=== PATIENT | female | born 1980 | race Caucasian/White ===

== ENCOUNTER 2023-11-24 09:26 | Emergency (ER) | payer OTHER, SELFPAY ==
[2023-11-24 09:29] VITALS: BP 103/71
[2023-11-24 10:02] LABS: % Basophils 0.9 % (0-2); % Eosinophils 4.3 % (0-6); % Immature Granulocytes 0.5 % (0-0.5); % Lymphocytes 27.7 % (20.5-51.1); % Monocytes 5.5 % (1.7-9.3); % Neutrophils 61.1 % (42.2-75.2); Absolute Eosinophils 0.2 10^3/uL (0-0.7); Absolute Lymphocytes 1.2 10^3/uL (1.2-3.4); Absolute Monocytes 0.2 10^3/uL (0.1-0.6); Absolute Neutrophils 2.6 10^3/uL (1.4-6.5); Hematocrit 39.5 % (37.0-47.0); Hemoglobin 13.5 g/dL (12.0-16.0); Mean Corp Hgb Conc. 34.2 g/dL (33.0-37.0); Mean Corpuscular Hgb 31.6 pg (27.0-31.0); Mean Corpuscular Volume 92.5 fL (81.0-99.0); Nucleated Red Blood Cells % 0 %; Platelet Count 159 10^3/uL (130-400); Red Blood Cell Count 4.27 10^6/uL (4.20-5.40); Red Cell Dist. Width 13.7 % (11.5-14.5); White Blood Cell Count 4.2 10^3/uL (4.8-10.8)
[2023-11-24 10:20] LABS: ALT (SGPT) 17 U/L (0-35); AST (SGOT) 33 U/L (14-36); Acetaminophen < 10 ug/ml (10-30); Albumin 3.8 g/dl (3.5-5.0); Alkaline Phosphatase 113 U/L (38-126); Blood Urea Nitrogen 9 mg/dl (7-17); Calcium 9.2 mg/dl (8.4-10.2); Carbon Dioxide 30 mmol/L (22-30); Chloride 103 mmol/L (98-107); Glucose 101 mg/dl (70-99); Potassium 4.5 mmol/L (3.5-5.1); Salicylate < 1.0 mg/dl (2.0-20.0); Sodium 133 mmol/L (135-145); Total Bilirubin 0.3 mg/dl (0.2-1.3); Total Protein 6.3 g/dl (6.3-8.2); eGFR > 60.00
[2023-11-24 10:42] LABS: Amphetamines Negative (Negative); Barbiturates Negative (Negative); Benzodiazepines Positive (Negative); Buprenorphine Negative (Negative); Cocaine Negative (Negative)
[2023-11-24 10:43] LABS: Marijuana Positive (Negative); Methadone Positive (Negative); Methamphetamines Negative (Negative); Opiates Negative (Negative); Phencyclidine Negative (Negative); Tricyclic Antidepressants Positive (Negative)
[2023-11-24 11:15] LABS: Fentanyl, Urine Negative (Negative)
--- NOTE | 2023-11-24 11:22 | ED.GENMED ---
History of Present Illness
<Nevin Woodward PA-C - Last Filed: 11/24/23 16:01>
General
Chief Complaint: Crisis Evaluation
Source: patient
Exam Limitations: none
Time Seen by Provider: 11/24/23 10:56
Nursing documentation reviewed up to this point in time: agreed with
Travel History
Have you had any contact with someone who has COVID-19?: No
Do you have any symptoms of coronavirus? Fever > 100 degrees, chills, cough, shortness of breath, sore throat, loss of taste or smell, muscle aches, or headache?: No
History of Present Illness
History of Present Illness:
Patient is a 43 year old female with history epilepsy, CHF, cardiac arrest w/ pacemaker, bipolar depression, anxiety presenting to the emergency department for medical clearance for in-patent psychiatric placement. Patient reports that her father
about 10 days ago which has made her depression and anxiety significantly worse. She expresses suicidal ideations. She was seen by crisis team and due to past medical history sent to the emergency department for medical clearance.
Patient denies any symptoms at this time. She specifically denies any chest pain, back pain, shortness of breath, headache, pain in lower extremities, fever, chills.
Patient states was prescribed Ativan by her PCP for anxiety management about a week ago. Patient endorses 1/2 pack cigarette smoking per day. No alcohol drinking. Occasional marijuana use. Patient denies any history of IV drug use.
Phy Exam
<Nevin Woodward PA-C - Last Filed: 11/24/23 16:01>
Physical Exam
Physical Exam:
Vitals: Patient's vital signs are stable
General: Patient appears to be in no acute distress
Skin: Warm and dry, no rashes or lesions
Head: Normocephalic, atraumatic
Eyes: Sclera nonicteric. EOMs intact. No nystagmus.
Throat: Protecting airway
Neck: Normal ROM, no cervical spine tenderness, no meningismus
Cardiac: Regular rate and rhythm, no murmurs.
Pulm: Normal respiratory effort, no wheezes, rales, rhonchi heard on exam.
Abdomen: No abdominal tenderness.
Extremities: No evidence of cyanosis or edema
Neuro: AAOx3. CN II-XII intact. No focal neurologic deficits.
Psychiatric: Tearful, anxious.
Course
<Nevin Woodward PA-C - Last Filed: 11/24/23 16:01>
Orders/Labs/Results
Orders:
Orders
11/24/23 09:34
Electrocardiogram (*1) Urgent
Reason for Study: Other
Other Reason for Exam: medical clearnace for crisis
11/24/23 09:35
EKG- Treatment ONCE
11/24/23 09:42
Acetaminophen Urgent
Complete Blood Count/With Diff Urgent
Comprehensive Metabolic Panel Urgent
Fentanyl, Urine Urgent
HCG, Serum Qualitative Screen Urgent
Comment: ADD ON
Salicylate Urgent
Urine Drug Abuse Screen Urgent
Date Specimen was Collected: 11/24/23
Time Specimen was Collected: 09:35
11/24/23 12:04
Add On- LAB Urgent
Tests Added?: serum hcg, qualitative
Abnormal Lab Results
11/24/23
09:42
WBC 4.2 L 10^3/uL
(4.8-10.8)
MCH 31.6 H pg
(27.0-31.0)
Sodium 133 L mmol/L
(135-145)
Glucose 101 H mg/dl
(70-99)
Salicylates < 1.0 L mg/dl
(2.0-20.0)
Urine Methadone Screen Positive H
(Negative)
Acetaminophen < 10 L ug/ml
(10-30)
Ur Tricyclics Screen Positive H
(Negative)
U Benzodiazepines Scrn Positive H
(Negative)
U Marijuana (THC) Screen Positive H
(Negative)
11/24/23 09:42
11/24/23 09:42
Vital Signs
Initial and Last Documented VS:
Initial Vital Signs
Temp Pulse Resp BP Pulse Ox
98.1 F 70 18 103/71 96
11/24/23 09:29 11/24/23 09:29 11/24/23 09:29 11/24/23 09:29 11/24/23 09:29
Last Documented Vital Signs
Temp Pulse Resp BP Pulse Ox
98.1 F 70 18 119/64 96
11/24/23 09:29 11/24/23 09:29 11/24/23 09:29 11/24/23 11:43 11/24/23 09:29
<Surinder Hernandez, DO - Last Filed: 11/24/23 11:42>
Orders/Labs/Results
Orders:
Orders
11/24/23 09:34
Electrocardiogram (*1) Urgent
Reason for Study: Other
Other Reason for Exam: medical clearnace for crisis
11/24/23 09:35
EKG- Treatment ONCE
11/24/23 09:42
Acetaminophen Urgent
Complete Blood Count/With Diff Urgent
Comprehensive Metabolic Panel Urgent
Fentanyl, Urine Urgent
HCG, Serum Qualitative Screen Urgent
Comment: ADD ON
Salicylate Urgent
Urine Drug Abuse Screen Urgent
Date Specimen was Collected: 11/24/23
Time Specimen was Collected: 09:35
11/24/23 12:04
Add On- LAB Urgent
Tests Added?: serum hcg, qualitative
Abnormal Lab Results
11/24/23
09:42
WBC 4.2 L 10^3/uL
(4.8-10.8)
MCH 31.6 H pg
(27.0-31.0)
Sodium 133 L mmol/L
(135-145)
Glucose 101 H mg/dl
(70-99)
Salicylates < 1.0 L mg/dl
(2.0-20.0)
Urine Methadone Screen Positive H
(Negative)
Acetaminophen < 10 L ug/ml
(10-30)
Ur Tricyclics Screen Positive H
(Negative)
U Benzodiazepines Scrn Positive H
(Negative)
U Marijuana (THC) Screen Positive H
(Negative)
11/24/23 09:42
11/24/23 09:42
Vital Signs
Initial and Last Documented VS:
Initial Vital Signs
Temp Pulse Resp BP Pulse Ox
98.1 F 70 18 103/71 96
11/24/23 09:29 11/24/23 09:29 11/24/23 09:29 11/24/23 09:29 11/24/23 09:29
Last Documented Vital Signs
Temp Pulse Resp BP Pulse Ox
98.1 F 70 18 119/64 96
11/24/23 09:29 11/24/23 09:29 11/24/23 09:29 11/24/23 11:43 11/24/23 09:29
<Nevin Woodward PA-C - Last Filed: 11/24/23 16:01>
MDM/Problems Addressed
Differential Diagnosis Includes:
Not limited to: Depression, anxiety, bipolar depression
MDM/Problems Addressed:
Patient is a 41-year-old female with history as documented presenting to the emergency department via crisis center for medical clearance for hopeful placement and psychiatric admission. Patient asymptomatic at this time. Has no complaints. Does
report worsening anxiety, depression since mother 10 years ago. Vital signs acceptable. She was mildly hypotensive on initial blood pressure reading but improved on second measurement. Exam as above. She is anxious/tearful appearing.
Labs obtained in triage reviewed. No clinically significant abnormalities. test negative. UDS obtained and reviewed. EKG shows paced rhythm without any acute signs of ischemia. Patient is medically cleared for psychiatric admission.
Discharged to crisis.
Chronic conditions affecting care:
Bipolar depression, anxiety
Acute Exacerbation and/or Progression of Chronic Illness:
N/A
<Nevin Woodward PA-C - Last Filed: 11/24/23 16:01>
*Pulse Oximetry
Patient hypoxic: no
*EKG
Interpreted by ED Provider?: Yes
EKG Intrepretation Date: 11/24/23
Comparison EKG: no comparison EKG present
Heart Rate: 63
Rate: normal
Rhythm: ventricular paced
Ischemia: no ischemia
*Manager [employer] Interpretation
Rate: Manager [employer]- N/A
*Critical Care Note
Total Time (30-74mins, 75-104mins- exclusive of procedures): Not Applicable
ED Attending Note
<Nevin Woodward PA-C - Last Filed: 11/24/23 16:01>
-
Portions of this chart may have been created with voice recognition software.� Occasional wrong word or��sound alike� substitutions may have occurred due to the inherent limitations of voice recognition software.
<Surinder Hernandez DO - Last Filed: 11/24/23 11:42>
ED Attending Note
Patient seen and examined by attending physician: Yes
I performed the substantive portion of visit, reviewed & personally made and approve the management plan that is documented in note by myself or RAVINDER.: Yes
I performed a history and physical exam of patient and discussed management with resident, I reviewed resident's note and agree with documented findings and plan of care.: Yes
ED Attending Note:
I evaluated patient at bedside. Mild initial hypotension, labs relatively unremarkable. UDS reviewed. Repeat blood pressure normotensive. She appears tearful and upset on examination. Her father 10 days ago which is likely a contributing
factor.
Discharge Plan
Departure
Patient Disposition: [facility]
Date of Disposition: 11/24/23
Time of Disposition: 13:02
Patient with high blood pressure during this ER visit?: No
Consults for patient: Crisis
Condition: Good
Covid-19: Not Applicable
Discharge Problem:
Medical clearance for psychiatric admission
Referrals:
Missael Harvey DO [Family Provider] -
Activity Restrictions/Additional Instructions:
-Patient medically cleared for psychiatric admission
-Return to the emergency department with any chest pain, shortness of breath, high fevers, or any other concern
Interventions
Interventions:
*Risk Screen - Suicide Last Done: 11/24/23 09:29
*General Assessment Last Done: 11/24/23 09:29
*Neglect/Abuse Screening Last Done: 11/24/23 09:29
ED- Fall Risk Assessment Last Done: 11/24/23 11:47
*ED COVID-19 Vaccine History Last Done: 11/24/23 09:29
*Nursing Disposition Last Done: 11/24/23 13:22
ED-Psychological Assessment Last Done: 11/24/23 11:43
Discharge Date and Time
Discharge Date/Time: 11/24/23 13:24
Print Language: AMHARIC
[2023-11-24 11:43] VITALS: BP 119/64
[2023-11-24 12:41] LABS: HCG, Serum Qualitative Screen Negative
== END 2023-11-24 13:24 ==
LOC: EMR 09:26
PROVIDERS: Physician Assistant; EMERGENCY PHYSICIAN Emergency Medicine; FAMILY PHYSICIAN Family Medicine
DX: R45.851 Suicidal ideations (principal); G40.909 Epilepsy, unspecified, not intractable, without status epilepticus; I50.9 Heart failure, unspecified; Z86.74 Personal history of sudden cardiac arrest; F31.9 Bipolar disorder, unspecified; F17.210 Nicotine dependence, cigarettes, uncomplicated; Z95.0 Presence of cardiac pacemaker
CPT/HCPCS: 99283; 80053; 80143; 80179; 80306; 80307; 84703; 85025; 93005